=== PATIENT | female | born 1960 | race Caucasian/White ===

== ENCOUNTER 2020-12-30 12:03 | Outpatient (CLI) | payer OTHER ==
[2020-12-30 13:18] LABS: Hemoglobin 14.8 g/dL (12.0-15.5); Mean Corpuscular HGB CONC 33.2 g/dL (32.0-36.0); Mean Corpuscular Hemoglobin 30.3 pg (27.0-33.0); Mean Corpuscular Volume 91.4 fl (81.6-98.3); Mean Platelet Volume 11.2 fl (7.4-10.4); Platelet Count 243 10x3/uL (150-450); RBC Distribution Width 13.2 % (11.5-14.5); Red Blood Cell (RBC) Count 4.88 10x6/uL (3.90-5.03); White Blood Cell (WBC) Count 7.8 10x3/uL (3.5-10.5)
[2020-12-31 00:41] LABS: SARS-CoV-2 PCR by NAA Not Detected (NotDetected)
== END 2020-12-30 12:04 | disposition home or self-care (01) ==
LOC: CSHLAB 12:03
PROVIDERS: ATTEND Podiatrist
DX: Z01.812 Encounter for preprocedural laboratory examination (principal); Z20.822 Contact with and (suspected) exposure to COVID-19; G57.81 Other specified mononeuropathies of right lower limb
CPT/HCPCS: 85027; U0003; U0005

== ENCOUNTER → 2021-01-01 | Day surgery (SDC) | payer OTHER ==
[2020-12-31 11:08] VITALS: BMI 21.3
[~2021-01-01] MED LIST: Bupivacaine PF 0.5% 30 ML VIAL ONE; Dexamethasone 4 mg/ml Vial ONE; Fentanyl 100 MCG/2 ML VIAL ONE; Ketorolac Tromethamine 30 MG/ML VIAL ONE; Lidocaine 1% MPF 2 ML VIAL ONE; Lidocaine 2% PF 5 ML VIAL ONE; Midazolam HCl 2 mg/2 ml Vial ONE; Ondansetron PF 4 MG/2 ML Vial ONE; PROPOFOL 20 ML ONE
== END ==
LOC: CSHSDC 09:43
PROVIDERS: ATTEND Podiatrist
PROC: 01BG0ZZ Excision of Tibial Nerve, Open Approach (ICD-10-PCS; principal; 2021-01-01)
DX: G57.81 Other specified mononeuropathies of right lower limb (principal); E11.9 Type 2 diabetes mellitus without complications; E78.00 Pure hypercholesterolemia, unspecified; E21.3 Hyperparathyroidism, unspecified; E04.1 Nontoxic single thyroid nodule; G47.33 Obstructive sleep apnea (adult) (pediatric); M81.0 Age-related osteoporosis without current pathological fracture; Z79.899 Other long term (current) drug therapy; Z79.4 Long term (current) use of insulin
CPT/HCPCS: 36416; 88304; J1100; J1885; J2001; J2250; J2405; J2704; J3010; J3490; S0020

== ENCOUNTER 2021-02-05 08:01 | Outpatient (CLI) | payer OTHER ==
[2021-02-05 10:37] LABS: Hemoglobin 14.8 g/dL (12.0-15.5); Mean Corpuscular HGB CONC 32.1 g/dL (32.0-36.0); Mean Corpuscular Hemoglobin 30.3 pg (27.0-33.0); Mean Corpuscular Volume 94.3 fl (81.6-98.3); Platelet Count 219 10x3/uL (150-450); RBC Distribution Width 12.4 % (11.5-14.5); Red Blood Cell (RBC) Count 4.89 10x6/uL (3.90-5.03); White Blood Cell (WBC) Count 5.8 10x3/uL (3.5-10.5)
[2021-02-05 11:02] LABS: Anion Gap 10 mmol/L (10-20); BUN (Urea Nitrogen) 14 mg/dL (9.8-20.1); Calc. Creatinine Clearance 0 mL/min (70-130); Calcium 10.1 mg/dL (7.8-10.44); Carbon Dioxide 27 mmol/L (23-31); Chloride 108 mmol/L (98-107); Glucose 89 mg/dL (80-115); Potassium 4.3 mmol/L (3.5-5.1); Sodium 141 mmol/L (136-145)
[2021-02-05 17:26] LABS: SARS-CoV-2 PCR by NAA Not Detected (NotDetected)
== END 2021-02-05 08:02 | disposition home or self-care (01) ==
LOC: CSHLAB 08:01
PROVIDERS: ATTEND Otolaryngology Plastic Surgery within the Head & Neck
DX: Z01.818 Encounter for other preprocedural examination (principal); Z20.822 Contact with and (suspected) exposure to COVID-19; E21.3 Hyperparathyroidism, unspecified; D35.1 Benign neoplasm of parathyroid gland; E83.52 Hypercalcemia
CPT/HCPCS: 80048; 85027; 93005; 93010; U0003; U0005

== ENCOUNTER 2021-02-09 08:02 | Day surgery (SDC) | payer OTHER ==
[2021-02-05 13:30] VITALS: BMI 19.8
[2021-02-09] MEDS ORDERED: Lidocaine 1% MPF 2 ML VIAL ONE (09:49)
[2021-02-09] MEDS ORDERED: Midazolam HCl 2 mg/2 ml Vial ONE (11:37)
[2021-02-09] MEDS ORDERED: Rocuronium Bromide 10 MG/ML (10ML VIAL) ONE (11:37)
[2021-02-09] MEDS ORDERED: Ondansetron PF 4 MG/2 ML Vial ONE ×2 (11:37→13:13)
[2021-02-09] MEDS ORDERED: Lidocaine 1% PF 5 ML VIAL ONE (11:37)
[2021-02-09] MEDS ORDERED: Fentanyl 100 MCG/2 ML VIAL ONE ×2 (11:37→13:13)
[2021-02-09] MEDS ORDERED: PROPOFOL 20 ML ONE (11:37)
[2021-02-09] MEDS ORDERED: Dexamethasone 20 MG/5 ML VIAL ONE (11:37)
[2021-02-09] MEDS ORDERED: Lidocaine 1% w/Epinephrine 1:100K 20 ML VIAL ONE (12:10)
[2021-02-09] MEDS ORDERED: HYDROcodone/Acetaminophen 5/325 mg Tablet ONE (13:54)
== END 2021-02-09 14:45 | disposition home or self-care (01) ==
LOC: CSHSDC 08:02
PROVIDERS: ATTEND Otolaryngology Plastic Surgery within the Head & Neck
PROC: 0GBN0ZZ Excision of Right Inferior Parathyroid Gland, Open Approach (ICD-10-PCS; principal; 2021-02-09)
DX: E21.3 Hyperparathyroidism, unspecified (principal); D35.1 Benign neoplasm of parathyroid gland; G47.33 Obstructive sleep apnea (adult) (pediatric); Z79.899 Other long term (current) drug therapy; Z79.84 Long term (current) use of oral hypoglycemic drugs; J32.9 Chronic sinusitis, unspecified; E05.90 Thyrotoxicosis, unspecified without thyrotoxic crisis or storm; Z01.818 Encounter for other preprocedural examination
CPT/HCPCS: 36416; 78070; 83970; 88305; 88331; A9500; J1100; J2250; J2405; J2704; J3010

== ENCOUNTER 2021-02-09 08:30 | Outpatient (CLI) | payer OTHER | END 2021-02-09 08:31 | disposition home or self-care (01) | LOC: CSHNM 08:30 | PROVIDERS: ATTEND Otolaryngology Plastic Surgery within the Head & Neck | DX: Z01.818 Encounter for other preprocedural examination (principal); D35.1 Benign neoplasm of parathyroid gland | CPT/HCPCS: 78070; A9500 ==

== ENCOUNTER 2022-06-08 10:14 | Outpatient (CLI) | payer OTHER | END 2022-06-08 10:15 | disposition home or self-care (01) | LOC: CSHRAD 10:14 | PROVIDERS: ATTEND Nurse Practitioner Family | DX: M25.522 Pain in left elbow (principal); S43.422A Sprain of left rotator cuff capsule, initial encounter ==